=== PATIENT | male | born 1970 | race Caucasian/White ===

== ENCOUNTER 2019-12-09 12:30 | Outpatient (CLI) | payer BC ==
[~2019-12-09] VITALS: Ht 165.1 cm; Wt 77.7 kg
[2019-12-09] MEDS ORDERED: LISI1TAB29 PO (12:38)
[2019-12-09] MEDS ORDERED: ROSU40TA23 PO (12:38)
[2019-12-09] MEDS ORDERED: LORA-1025 PO (12:38)
[2019-12-09] MEDS ORDERED: ALPR0.25 PO (12:38)
== END 2019-12-09 12:50 | disposition home or self-care (01) ==
LOC: PREOP 12:30
PROVIDERS: ATTEND Surgery
DX: Z01.818 Encounter for other preprocedural examination (principal)

== ENCOUNTER 2019-12-13 12:23 | Day surgery (SDC) | payer BC ==
[~2019-12-13] VITALS: Ht 165.1 cm; Wt 77.7 kg
[~2019-12-13 12:23] MED LIST: ALPR0.25 PO; LACTATED RINGERS 1,000 ML IV ONE; LISI1TAB29 PO; LORA-1025 PO; ROSU40TA23 PO
[2019-12-13] MEDS ORDERED: LACTATED RINGERS 1,000 ML IV STA (12:29)
[2019-12-13 12:42] VITALS: BP 125/83
[2019-12-13] MEDS ORDERED: MIDAZOLAM 2 MG/2 ML (VERSED) VIAL ONE (12:44)
[2019-12-13] MEDS ORDERED: PROPOFOL INJECTION 50 ML IV ONE (12:44)
--- NOTE | 2019-12-13 12:50 | Progress Note-Pre Operative ---
Pre-Operative Progress Note H&P Reviewed The H&P was reviewed, patient examined and no changes noted. Date Seen by Provider: Dec 13, 2019 Time Seen by Provider: 12:49 Date H&P Reviewed: Dec 13, 2019 Time H&P Reviewed: 12:49 Pre-Operative Diagnosis: Screening Colonoscopy with family history of colon cancer RICHARD ALMEIDA DO Dec 13, 2019 12:50
--- NOTE | 2019-12-13 13:13 | Progress Note-Post Operative ---
Post-Operative Progess Note Surgeon (s)/Pipe Manufacture Supervisor (s) Surgeon RICHARD ALMEIDA DO Pipe Manufacture Supervisor: NA Pre-Operative Diagnosis Screening Colonoscopy with family history of colon cancer Post-Operative Diagnosis Normal Colon Procedure & Operative Findings Date of Procedure 12/13/19 Procedure Performed/Findings Colonoscopy Anesthesia Type per [facility] Estimated Blood Loss Estimated blood loss (mL): None Specimens/Packing Specimens Removed None RICHARD ALMEIDA DO Dec 13, 2019 13:13
[2019-12-13 13:15] VITALS: BP 101/60
--- NOTE | 2019-12-13 13:15 | Discharge Inst-Simple/Standard ---
Discharge Inst-Standard Patient Instructions/Follow Up Plan of Care/Instructions/FU: Patient should have colonoscopy again in 5 years Activity as Tolerated: Yes Discharge Diet: Regular Diet RICHARD ALMEIDA DO Dec 13, 2019 13:15
[2019-12-13 13:20] VITALS: BP 93/57
[2019-12-13 13:25] VITALS: BP 93/57
--- NOTE | 2019-12-13 13:32 | Anesthesia-General Post-Op ---
MAC Patient Condition Mental Status/LOC: Same as Preop Cardiovascular: Satisfactory Nausea/Vomiting: Absent Respiratory: Satisfactory Pain: Controlled Complications: Absent Post Op Complications Complications None Follow Up Care/Instructions Patient Instructions None needed. Anesthesiology Discharge Order Discharge Order Patient is doing well, no complaints, stable vital signs, no apparent adverse anesthesia problems. KELTON ANGUIANO DO Dec 13, 2019 13:32
[2019-12-13 13:51] VITALS: BP 111/89
[2019-12-13 13:52] VITALS: BP 111/89
--- NOTE | 2019-12-13 18:47 | OPERATIVE REPORT ---
DATE OF SERVICE: 12/13/2019 PREOPERATIVE DIAGNOSIS: History of colon polyps, family history of colon cancer. POSTOPERATIVE DIAGNOSIS: Normal colon. PROCEDURE: Colonoscopy. SURGEON: Richard Bradley D.O. ANESTHESIA: Per MDA. ESTIMATED BLOOD LOSS: None. COMPLICATIONS: None. INDICATIONS: The patient is a 49-year-old male with family history of colon cancer, personal history of polyps. He understands risks and benefits of procedure and wished to proceed with procedure. Consent was signed in the chart. DESCRIPTION OF PROCEDURE: The patient was taken to the endoscopy suite, placed in left lateral recumbent position. Timeout was performed. Digital rectal exam was performed. There were no palpable polyps, masses or ulcerations. Scope was inserted in the rectum, advanced all the way to the cecum with minimal difficulty. Prep was adequate. Scope was then slowly retracted back. There were no polyps, masses or ulcerations within the cecum, ascending, transverse, descending and sigmoid colon. Once in the rectum, scope was retroflexed noting no other pathology. Scope was returned to its normal position, slowly withdrawn until completely removed. The patient tolerated procedure well without any complications, taken to recovery room in stable condition. RECOMMENDATIONS: The patient will need repeat colonoscopy in 5 years. Any issues before that, be seen at that time. Job ID: [id number] DocumentID: [id number] Dictated Date: 12/13/2019 13:15:36 Health Program Analyst Date: 12/13/2019 18:47:00 Dictated By: RICHARD BRADLEY DO
--- OUTSIDE RECORDS SUMMARY | 2019-12-15 15:06 | XMS REPORT | Continuity of Care Document ---
Author Organization Unknown Address Unknown Phone Unavailable Allergies Active Description Code Type Severity Reaction Onset Reported/Identified Relationship to Patient Clinical Status Yes No Known Drug Allergies [id number] Drug Allergy Unknown N/A 12/09/2019 Medications There is no data. Problems Date Dx Coded Attending Type Code Diagnosis Diagnosed By 12/07/2019 RICHARD ALMEIDA DO Ot Z01.818 ENCOUNTER FOR OTHER PREPROCEDURAL EXAMIN 12/09/2019 RICHARD ALMEIDA DO Ot Z01.818 ENCOUNTER FOR OTHER PREPROCEDURAL EXAMIN 12/09/2019 RICHARD ALMEIDA DO Ot Z01.818 ENCOUNTER FOR OTHER PREPROCEDURAL EXAMIN 12/14/2019 RICHARD ALMEIDA DO Ot I10 ESSENTIAL (PRIMARY) HYPERTENSION 12/14/2019 RICHARD ALMEIDA DO Ot Z12. 11 ENCOUNTER FOR SCREENING FOR MALIGNANT NE 12/14/2019 RICHARD ALMEIDA DO Ot Z79.899 OTHER [facility] (CURRENT) DRUG THERAPY 12/14/2019 RICHARD ALMEIDA DO Ot Z80. 0 FAMILY HISTORY OF MALIGNANT NEOPLASM OF 12/14/2019 RICHARD ALMEIDA DO Ot Z86.010 PERSONAL HISTORY OF COLONIC POLYPS Procedures There is no data. Results Test Result Range LIPID PANEL - 10/28/19 08:29 CHOLESTEROL, TOTAL 256 mg/dL <200 HDL CHOLESTEROL 59 mg/dL >40 TRIGLYCERIDES 93 mg/dL <150 LDL-CHOLESTEROL 176 mg/dL (calc) NRG CHOL/HDLC RATIO 4.3 (calc) <5.0 NON HDL CHOLESTEROL 197 mg/dL (calc) <13 0 CMP - 10/28/19 08:29 GLUCOSE 100 mg/dL 65-99 UREA NITROGEN (BUN) 19 mg/dL 7-25 CREATININE 0.94 mg/dL 0.70-1.33 eGFR NON-AFR. [place] 94 mL/min/1.73m2 > OR = 60 eGFR 109 mL/min/1.73m2 > OR = 60 BUN/CREATININE RATIO NOT APPLICABLE (calc) 6-22 SODIUM 141 mmol/L 135-146 POTASSIUM 4.6 mmol/L 3.5-5.3 CHLORIDE 104 mmol/L 98-110 CARBON DIOXIDE 31 mmol/L 20-32 CALCIUM 9.8 mg/dL 8.6-10.3 PROTEIN, TOTAL 6.9 g/dL 6.1-8.1 ALBUMIN 4.5 g/dL 3.6-5.1 GLOBULIN 2.4 g/dL (calc) 1.9-3.7 ALBUMIN/GLOBULIN RATIO 1.9 (calc) 1.0-2. 5 BILIRUBIN, TOTAL 0.6 mg/dL 0.2-1.2 ALKALINE PHOSPHATASE 52 U/L 40-115 AST 20 U/L 10-35 ALT 26 U/L 9-46 CBC - 10/28/19 08:29 WHITE BLOOD CELL COUNT 5.5 Thousand/uL 3 .8-10.8 RED BLOOD CELL COUNT 4.96 Million/uL 4.2 0-5.80 HEMOGLOBIN 15.6 g/dL 13.2-17.1 HEMATOCRIT 45.6 % 38.5-50.0 MCV 91.9 fL 80.0-100.0 MCH 31.5 pg 27.0-33.0 MCHC 34.2 g/dL 32.0-36.0 RDW 12.6 % 11.0-15.0 PLATELET COUNT 290 Thousand/uL 140-400 MPV 10.8 fL 7.5-12.5 ABSOLUTE NEUTROPHILS 3113 cells/uL 1500- 7800 ABSOLUTE LYMPHOCYTES 1469 cells/uL 850-3 900 ABSOLUTE MONOCYTES 451 cells/uL 200-950 ABSOLUTE EOSINOPHILS 429 cells/uL 15-500 ABSOLUTE BASOPHILS 39 cells/uL 0-200 NEUTROPHILS 56.6 % NRG LYMPHOCYTES 26.7 % NRG MONOCYTES 8.2 % NRG EOSINOPHILS 7.8 % NRG BASOPHILS 0.7 % NRG Encounters ACCT No. Visit Date/Time Discharge Status Pt. Type Provider Facility Loc./Unit Complaint [id number] 10/18/2019 16:20:00 10/18/2019 23:59:5 9 CLS Outpatient TETE, HELADIO Paulino [facility] [id number] 10/28/2019 08:30:00 Document Registration [id number] 12/13/2019 12:23:00 020 13:53:00 DIS Outpatient RICHARD ALMEIDA DO Via [facility] ENDO SCREENING/FAMILY HX COL ON [place] [id number] 12/09/2019 12:30:00 020 12:50:00 DIS Outpatient RICHARD ALMEIDA DO [facility] PREOP COLONOSCOPY
== END 2019-12-13 13:53 | disposition home or self-care (01) ==
LOC: ENDO 12:23
PROVIDERS: ATTEND Surgery
DX: Z12.11 Encounter for screening for malignant neoplasm of colon (principal); Z86.010 Personal history of colon polyps; Z80.0 Family history of malignant neoplasm of digestive organs; I10 Essential (primary) hypertension; Z79.899 Other long term (current) drug therapy

== ENCOUNTER → 2021-01-25 | Outpatient (CLI) | payer BC ==
[~2021-01-25] MED LIST changes: -LACTATED RINGERS 1,000 ML IV ONE
== END ==
LOC: RAD 14:14
PROVIDERS: ATTEND Family Medicine
DX: S22.000A Wedge compression fracture of unspecified thoracic vertebra, initial encounter for closed fracture (principal); Z53.8 Procedure and treatment not carried out for other reasons

== ENCOUNTER 2021-06-02 16:40 | Emergency (ER) | payer BC ==
[~2021-06-02] VITALS: Ht 165.1 cm; Wt 69.8 kg
[2021-06-02] MEDS ORDERED: NS IV 1000 ML 1,000 ML IV SCH (16:45)
[2021-06-02] MEDS ORDERED: RT-ALBUTEROL HFA 8.5 GM INHALER IH STA (17:04)
[2021-06-02] MEDS ORDERED: ONDANSETRON 4 MG/2 ML (SDV) Z0FRAN IVP STA (17:04)
[2021-06-02] MEDS ORDERED: ONDANSETRON 4 MG/2 ML (SDV) Z0FRAN ONE (17:10)
--- NOTE | 2021-06-02 17:12 | ED General ---
General Stated Complaint: COVID+; COUGH; NAUSEA/VOMITING Source of Information: Patient History of Present Illness Date Seen by Provider: Jun 02, 2021 Time Seen by Provider: 16:42 Initial Comments 50-year-old male presenting with complaints of 1 week of cough, nausea, vomiting, diarrhea. He reports having a positive Covid test a week ago. He has been at home and his has been sick for 2 weeks. She was admitted earlier today from ER due to complications from Covid. Patient states that he has lost 15 pounds in the last week and cannot keep anything down. He states that he vomits anytime he tries to eat or drink anything. He states if he does take anything by mouth then he coughs and vomits after coughing and gagging himself. He has been running a fever at times and reports it was 101.5F earlier today and he took some DayQuil for it. He complains of diarrhea but has not had a bowel movement for 4 days until a loose stool today. He did not try to contact clinic or do anything with his pcp about his symptoms all week but after his was admitted earlier this morning he decided to come to the ED and be seen. Timing/Duration: 1 Week, Constant Severity: Severe Associated Systoms: Chest Pain (chest wall pain from coughing), Cough; No Diaphoresis; Fever/Chills, Headaches, Loss of Appetite, Malaise, Nausea/Vomiti ng; No Rash, No Seizure; Shortness of Air; No Syncope; Weakness Allergies and Home Medications Allergies Coded Allergies: No Known Drug Allergies (Unverified , 12/09/19) Home Medications Amlodipine/Valsartan 1 Each Tablet, 1 TAB PO DAILY, (Reported) Last Action: New Order Azithromycin 500 Mg Tablet, 500 MG PO DAILY Prescribed by: LESLIE MOSS on 06/02/212006 Ezetimibe 10 Mg Tablet, 10 MG PO DAILY, (Reported) Last Action: New Order Ondansetron 4 Mg Tab.rapdis, 4 MG PO Q6H PRN for NAUSEA/VOMITING Prescribed by: LESLIE MOSS on 06/02/212006 Prednisone 20 Mg Tab, 40 MG PO DAILY Prescribed by: LESLIE MOSS on 06/02/21 2007 Patient Home Medication List Home Medication List Reviewed: Yes Review of Systems Review of Systems Constitutional: see HPI EENTM: nose congestion Respiratory: see HPI Cardiovascular: No edema; palpitations Gastrointestinal: see HPI Genitourinary: decreased output Musculoskeletal: other (generalized muscle and body aches) Skin: No rash Psychiatric/Neurological: See HPI Hematologic/Lymphatic: Denies Blood Clots Immunological/Allergic: grass allergy, pollen allergy Past Cdyirnc-Ccsvbn-Hngprm Hx Seasonal Allergies Seasonal Allergies: Yes Past Medical History Surgeries: No Respiratory: No Cardiac: Yes High Cholesterol, Hypertension Neurological: No Genitourinary: No Gastrointestinal: Yes Polyps Musculoskeletal: No Endocrine: No HEENT: No Cancer: No Psychosocial: No Integumentary: No Blood Disorders: No Family Medical History Colon cancer Physical Exam Vital Signs Vital Signs - First Documented 06/02/21 16:50 Temp 37.4 Pulse 97 Resp 16 B/P (MAP) 118/74 (89) Pulse Ox 98 O2 Delivery Room Air Capillary Refill : Height, Weight, BMI Height: '" Weight: lbs. oz. kg; 28.50 BMI Method: General Appearance: No Apparent Distress, WD/WN HEENT: PERRL/EOMI, Pharynx Normal Neck: Full Range of Motion, Normal Inspection, Non Tender, Supple Respiratory: No Accessory Muscle Use, No Respiratory Distress, Decreased Breath Sounds, Other (tender to palpation on chest wall) Cardiovascular: Regular Rate, Rhythm, Normal Peripheral Pulses Gastrointestinal: Normal Bowel Sounds, No Pulsatile Mass, Soft; No Distended, No Guarding, No Rebound; Tenderness Rectal: Deferred Extremity: Normal Capillary Refill, Normal Inspection, No Calf Tenderness, No Pedal Edema Neurologic/Psychiatric: Alert, Oriented x3, No Motor/Sensory Deficits, lead relay tester II- XII Norm as Tested, Other (flat affect) Skin: Normal Color, Warm/Dry Focused Exam Lactate Level 06/02/21 17:04: Lactic Acid Level 0.98 Lactic Acid Level Laboratory Tests Test 06/02/21 17:04 Lactic Acid Level 0.98 MMOL/L (0.50-2.00) Progress/Results/Core Measures Suspected Sepsis SIRS Temperature: Pulse: Respiratory Rate: Laboratory Tests 06/02/21 17:04: White Blood Count 5.2 Blood Pressure / Mean: 06/02/21 17:04: Lactic Acid Level 0.98 Laboratory Tests 06/02/21 17:04: Creatinine 0.95, INR Comment 0.9, Platelet Count 168, Total Bilirubin 0.3 Results/Orders Lab Results Laboratory Tests Test 06/02/21 17:04 06/02/21 17:13 06/02/21 17:24 Range/Units White Blood Count 5.2 4.3-11.0 10^3/uL Red Blood Count 4.99 4.30-5.52 10^6/uL Hemoglobin 15.4 13.3-17.7 g/dL Hematocrit 45 40-54 % Mean Corpuscular Volume 90 80-99 fL Mean Corpuscular Hemoglobin 31 25-34 pg Mean Corpuscular Hemoglobin Concent 34 32-36 g/dL Red Cell Distribution Width 13.0 10.0-14.5 % Platelet Count 168 130-400 10^3/uL Mean Platelet Volume 10.4 9.0-12.2 fL Immature Granulocyte % (Auto) 0 % Neutrophils (%) (Auto) 74 42-75 % Lymphocytes (%) (Auto) 20 12-44 % Monocytes (%) (Auto) 6 0-12 % Eosinophils (%) (Auto) 0 0-10 % Basophils (%) (Auto) 0 0-10 % Neutrophils # (Auto) 3.8 1.8-7.8 X 10^3 Lymphocytes # (Auto) 1.1 1.0-4.0 X 10^3 Monocytes # (Auto) 0.3 0.0-1.0 X 10^3 Eosinophils # (Auto) 0.0 0.0-0.3 10^3/uL Basophils # (Auto) 0.0 0.0-0.1 10^3/uL Immature Granulocyte # (Auto) 0.0 0.0-0.1 10^3/uL Prothrombin Time 12.8 12.2-14.7 SEC INR Comment 0.9 0.8-1.4 Activated Partial Thromboplast Time 36 H 24-35 SEC D-Dimer 0.44 0.00-0.49 UG/ML Sodium Level 133 L 135-145 MMOL/L Potassium Level 4.4 3.6-5.0 MMOL/L Chloride Level 97 L 98-107 MMOL/L Carbon Dioxide Level 25 21-32 MMOL/L Anion Gap 11 5-14 MMOL/L Blood Urea Nitrogen 19 H 7-18 MG/DL Creatinine 0.95 0.60-1.30 MG/DL Estimat Glomerular Filtration Rate 83 BUN/Creatinine Ratio 20 Glucose Level 112 H 70-105 MG/DL Lactic Acid Level 0.98 0.50-2.00 MMOL/L Calcium Level 8.4 L 8.5-10.1 MG/DL Corrected Calcium 8.6 8.5-10.1 MG/DL Total Bilirubin 0.3 0.1-1.0 MG/DL Aspartate Amino Transf (AST/SGOT) 55 H 5-34 U/L Alanine Aminotransferase (ALT/SGPT) 46 0-55 U/L Alkaline Phosphatase 93 40-136 U/L Troponin I < 0.30 <0.30 NG/ML C-Reactive Protein 2.57 H <0.50 MG/DL Pro-B-Type Natriuretic Peptide 12.1 <75.0 PG/ML Total Protein 6.7 6.4-8.2 GM/DL Albumin 3.7 3.2-4.5 GM/DL Blood Gas Puncture Site RIGHT BRACHIAL Blood Gas Patient Temperature 37.4 Arterial Blood pH 7.48 H 7.37-7.43 Arterial Blood Partial Pressure CO2 37 35-45 MMHG Arterial Blood Partial Pressure O2 62 L 79-93 MMHG Arterial Blood HCO3 28 H 23-27 MMOL/L Arterial Blood Total CO2 28.7 21.0-31.0 MMOL/L Arterial Blood Oxygen Saturation 93 L 94-100 % Arterial Blood Base Excess 4.0 H -2.5-2.5 MMOL/L Jose Test NEGATIVE Blood Gas Ventilator Setting NO Blood Gas Inspired Oxygen N/A Urine Color YELLOW Urine Clarity CLEAR Urine pH 6.0 5-9 Urine Specific [place] >=1.030 1.016-1.022 Urine Protein 1+ H NEGATIVE Urine Glucose (UA) NEGATIVE NEGATIVE Urine Ketones 1+ H NEGATIVE Urine Nitrite NEGATIVE NEGATIVE Urine Bilirubin 1+ H NEGATIVE Urine Urobilinogen 0.2 < = 1.0 MG/DL Urine Leukocyte Esterase NEGATIVE NEGATIVE Urine RBC (Auto) NEGATIVE NEGATIVE Urine RBC NONE /HPF Urine WBC 2-5 /HPF Urine Squamous Epithelial Cells 5-10 /HPF Urine Crystals NONE /LPF Urine Bacteria MODERATE H /HPF Urine Casts PRESENT /LPF Urine Granular Casts 2-5 H /LPF Urine Mucus LARGE H /LPF Urine Culture Indicated YES My Orders Orders - LESLIE MOSS MD Monitor-Rhythm Ecg Trace Only (06/02/21 16:45) Ed Iv/Invasive Line Start (06/02/21 16:45) Cbc With Automated Diff (06/02/21 16:45) Comprehensive Metabolic Panel (06/02/21 16:45) Crp Fs (06/02/21 16:45) Troponin I Fs (06/02/21 16:45) Protime With Inr (06/02/21 16:45) Partial Thromboplastin Time (06/02/21 16:45) Ekg Tracing (06/02/21 16:45) Arterial Blood Gas (06/02/21 16:45) Ns Iv 1000 Ml (Sodium Chloride 0.9%) (06/02/21 16:45) Fibrin Degradation Products (06/02/21 16:45) Probnp Fs (06/02/21 16:45) Chest 1 View Ap/Pa Only (06/02/21 16:45) Ua Culture If Indicated (06/02/21 16:45) Dexamethasone Injection (Decadron Inje (06/02/21 16:45) Blood Culture (06/02/21 16:50) Lactic Acid Analyzer (06/02/21 16:50) Albuterol Inhaler (Albuterol) (06/02/21 17:04) Ondansetron Injection (Zofran Injectio (06/02/21 17:04) Nursing Communication (Order) (06/02/21 17:05) Ondansetron Injection (Zofran Injectio (06/02/21 17:10) Urine Culture (06/02/21 17:24) Ns Iv 1000 Ml (Sodium Chloride 0.9%) (06/02/21 17:54) Azithromycin Injection (Zithromax Inject (06/02/21 17:55) Ketorolac Injection (Toradol Injection) (06/02/21 17:55) Orthostatic Vital Signs (Adult (06/02/21 19:01) Rx-Ondansetron Po (Rx-Zofran Po) (06/02/21 20:30) Rx-Ondansetron Po (Rx-Zofran Po) (06/02/21 20:21) Medications Given in ED Current Medications Medications Dose Ordered Sig/John Route Start Time Stop Time Status Last Admin Dose Admin Ondansetron HCl 4 mg Q6H PRN PO 06/02/21 20:30 06/02/21 20:23 DC 06/02/21 20:22 4 MG Vital Signs/I&O 06/02/21 06/02/21 06/02/21 06/02/21 16:50 18:07 19:25 20:12 Temp 37.4 37.4 Pulse 97 100 96 104 104 Resp 16 16 B/P (MAP) 118/74 (89) 102/62 (75) 112/92 (98) 112/70 (84) 115/89 (98) Pulse Ox 98 98 O2 Delivery Room Air Room Air 06/03/21 00:00 Intake Total 2250 ml Balance 2250 ml Capillary Refill : Progress Note #1: Progress Note check labs, ECG, CXR, cardiac enzymes and coags. Give IVF for hydration, Zofran for nausea, Decadron for cough and inflammation of lungs, albuterol inhaler with spacer. Obtain ABG to check oxygen level in blood. Sats with probe on his forehead are 98-100% on room air. Differential diagnosis includes Covid pneumonia, pulmonary malaise, myocardial infarction, congestive heart failure, sepsis, viral syndrome Progress Note #2: Progress Note CXR with diffuse patchy infiltrates consistent with Covid. CBC without acute significant abnormality. Chemistry without sepsis and normal cardiac enzymes and lactic acid. ABG with alkalosis pH 7.48, pCO2 37, pO2 62 UA positive for bacteria and concentrated with elevated specific gravity. Negative D Dimer for PE. Repeat IVF bolus and encourage oral intake. Give Toradol to help with pain in ribs from coughing. first dose of zithromax by IV to help avoid nausea/vomiting. Pt has had no emesis in the ED Progress Note #3: Progress Note Orthostatic vital signs did not demonstrate further dehydration. Patient stated he was feeling better. Will discharge to home with inhaler, spacer, Zithromax, Zofran, prednisone, counseling on follow-up and return precautions. ECG Initial ECG Impression Date: Jun 02, 2021 Initial ECG Impression Time: 17:00 Initial ECG Rate: 96 Initial ECG Rhythm: Normal Sinus Initial ECG Comparisson: No Previous ECG Available Comment Normal sinus rhythm with a heart rate of 96 bpm. Multiple PVCs are present. IL interval 148 ms. QT interval 342 ms with a QTc interval 433 ms. There is no acute ST elevation. There is no prior tracing available for comparison. Diagnostic Imaging Diagonstic Imaging: Xray Plain Films/CT/US/NM/MRI: chest Comments NAME: OBDULIA FALLON [facility] REC#: [id number] PT STATUS: REG ER : 1970 PHYSICIAN: LESLIE MOSS MD ADMIT DATE: 06/02/21/ER FS Draft Date of Exam:06/02/21 CHEST 1 VIEW AP/PA ONLY INDICATION: Cough, Covid positive. COMPARISON: None available. TECHNIQUE: Single radiograph of the chest dated June 02, 2021. FINDINGS: The cardiac silhouette is within normal limits in size. No significant pulmonary vascular congestion. Minimal patchy opacities are seen within the lungs, bilaterally. No pleural effusion. No pneumothorax. No acute osseous abnormality. IMPRESSION: Minimal patchy bilateral pulmonary opacities concerning for infectious infiltrate such as Covid. Recommend clinical correlation. Dictated on workstation # [id number] Dict: 06/02/21 1719 Trans: 06/02/21 1721 [facility] [id number] Interpreted by: JEANNINE PEACOCK MD Electronically signed by: Reviewed: Reviewed by Me Departure Impression Primary Impression: COVID-19 virus infection Additional Impressions: Nausea vomiting and diarrhea Upper respiratory infection with cough and congestion Dehydration Disposition: HOME, SELF-CARE Condition: Stable Departure-Patient Inst. Decision time for Depature: 20:02 Referrals: HELADIO GARCIA MD (PCP/Family) Primary Care Physician Patient Instructions: COVID-19 ED, COVID-19 Overview, Cough, Adult ED, Dehydration, Adult ED, How to Use a Spacer, Nausea and Vomiting, Adult ED, Recovery After COVID-19 Add. Discharge Instructions: Use the nausea medicine to help keep your stomach settled so you can keep sipping on fluids to stay hydrated. Use the inhaler with spacer to help with cough and breathing. Continue Mucinex to help loosen cough and congestion. Use a humidifier at the bedside to help with keeping congestion and airways moist when you are sleeping. Take the full course of antibiotic and steroids to treat for atypical pneumonia and lung inflammation. Check with Dr. Garcia and the [facility] clinic during the week for continued concerns Scripts Azithromycin (Azithromycin) 500 Mg Tablet 500 MG PO DAILY for 4 Days, #4 TAB 0 Refills Prov: LESLIE MOSS MD 06/02/21 Ondansetron (Ondansetron Odt) 4 Mg Tab.rapdis 4 MG PO Q6H PRN for NAUSEA/VOMITING for 5 Days, #20 TAB 1 Refill Prov: LESLIE MOSS MD 06/02/21 Prednisone (Prednisone) 20 Mg Tab 40 MG PO DAILY for COVID/Cough for 5 Days, #10 TAB 0 Refills Prov: LESLIE MOSS MD 06/02/21 Work/School Note: Work Release Form Date Seen in the Emergency Department: Jun 02, 2021 Return to Work: Jun 11, 2021 Other Restrictions Listed Below: May return to work after Quarantine and Covid symptoms resolved LESLIE MOSS MD Jun 02, 2021 17:11
[2021-06-02 17:16] LABS: WHITE BLOOD COUNT 5.2 10^3/uL (4.3-11.0)
[2021-06-02 17:17] LABS: BASOPHILS % (AUTO) 0 % (0-10); EOSINOPHILS % (AUTO) 0 % (0-10); HEMATOCRIT 45 % (40-54); HEMOGLOBIN 15.4 g/dL (13.3-17.7); LYMPHOCYTES # (AUTO) 1.1 X 10^3 (1.0-4.0); LYMPHOCYTES % (AUTO) 20 % (12-44); MEAN CORPUSCULAR HEMOGLOBIN 31 pg (25-34); MEAN CORPUSCULAR HGB CONC 34 g/dL (32-36); MEAN CORPUSCULAR VOLUME 90 fL (80-99); MEAN PLATELET VOLUME 10.4 fL (9.0-12.2); MONOCYTES # (AUTO) 0.3 X 10^3 (0.0-1.0); MONOCYTES % (AUTO) 6 % (0-12); NEUTROPHILS # (AUTO) 3.8 X 10^3 (1.8-7.8); NEUTROPHILS % (AUTO) 74 % (42-75); PLATELET COUNT 168 10^3/uL (130-400)
[2021-06-02 17:17] LABS: ABG PCO2 37 MMHG (35-45); ABG PH 7.48 (7.37-7.43); ABG PO2 62 MMHG (79-93)
[2021-06-02 17:18] LABS: ABG OXYGEN SATURATION 93 % (94-100); ABG TCO2 28.7 MMOL/L (21.0-31.0); ALLENS TEST NEGATIVE; VENTILATOR NO
[2021-06-02 17:20] LABS: PATIENT TEMP 37.4
--- NOTE | 2021-06-02 17:22 | Diagnostic Imaging Report ---
INDICATION: Cough, Covid positive. COMPARISON: None available. TECHNIQUE: Single radiograph of the chest dated June 02, 2021. FINDINGS: The cardiac silhouette is within normal limits in size. No significant pulmonary vascular congestion. Minimal patchy opacities are seen within the lungs, bilaterally. No pleural effusion. No pneumothorax. No acute osseous abnormality. IMPRESSION: Minimal patchy bilateral pulmonary opacities concerning for infectious infiltrate such as Covid. Recommend clinical correlation. Dictated by: Dictated on workstation # [id number]
[2021-06-02 17:26] LABS: INR 0.9 (0.8-1.4); PROTHROMBIN TIME PATIENT 12.8 SEC (12.2-14.7)
[2021-06-02 17:33] LABS: ALANINE AMINOTRANSFERASE 46 U/L (0-55); ALKALINE PHOSPHATASE 93 U/L (40-136); BILIRUBIN,TOTAL 0.3 MG/DL (0.1-1.0); BUN/CREATININE RATIO 20; CALCIUM 8.4 MG/DL (8.5-10.1); CARBON DIOXIDE 25 MMOL/L (21-32); CHLORIDE 97 MMOL/L (98-107); CREATININE SERUM 0.95 MG/DL (0.60-1.30); GFR ESTIMATED 83; GLUCOSE 112 MG/DL (70-105); POTASSIUM 4.4 MMOL/L (3.6-5.0); SODIUM 133 MMOL/L (135-145)
[2021-06-02 17:34] LABS: ALBUMIN 3.7 GM/DL (3.2-4.5); TOTAL PROTEIN 6.7 GM/DL (6.4-8.2)
[2021-06-02 17:34] LABS: BILIRUBIN,URINE 1+ (NEGATIVE); CLARITY,URINE CLEAR; COLOR,URINE YELLOW; GLUCOSE, URINE (UA) NEGATIVE (NEGATIVE); KETONES,URINE 1+ (NEGATIVE); LEUKOCYTE ESTERASE ,URINE NEGATIVE (NEGATIVE); NITRITE,URINE NEGATIVE (NEGATIVE); PROTEIN,URINE 1+ (NEGATIVE)
[2021-06-02 17:35] LABS: BACTERIA,URINE MODERATE /HPF
[2021-06-02] MEDS ORDERED: EZET10TA49 PO (17:35)
[2021-06-02] MEDS ORDERED: AMLO-375 PO (17:35)
[2021-06-02] MEDS ORDERED: NS IV 1000 ML 1,000 ML IV STA (17:54)
[2021-06-02] MEDS ORDERED: KETOROLAC 30 MG/ML VIAL IVP STA (17:55)
[2021-06-02] MEDS ORDERED: AZITHROMYCIN INJECTION 500 MG in NS (IVPB) 250 ML IV STA (17:55)
[2021-06-02 19:25] VITALS: BP_SYST 102; BP_SYST 112; BP_SYST 115; BP_DIAS 62; BP_DIAS 70; BP_DIAS 89
[2021-06-02] MEDS ORDERED: PRD20T PO (20:07)
[2021-06-02] MEDS ORDERED: AZIT500T9 PO (20:07)
[2021-06-02] MEDS ORDERED: ONDA4TAB11 PO (20:07)
[2021-06-02 20:12] VITALS: BP 112/92
[2021-06-02] MEDS ORDERED: RX-ONDANSETRON 4 MG ODT (ZOFRAN) PPK #4 ONE (20:21)
[2021-06-02] MEDS ORDERED: RX-ONDANSETRON 4 MG ODT (ZOFRAN) PPK #4 PO PRN (20:30)
== END 2021-06-02 20:23 | disposition home or self-care (01) ==
LOC: EDUNIT# 16:40 → ER FS 16:43
DX: U07.1 COVID-19 (principal); R11.2 Nausea with vomiting, unspecified; E86.0 Dehydration; I10 Essential (primary) hypertension
CPT/HCPCS: 36415; 71045; 80053; 81000; 82805; 83605; 83880; 84484; 85025; 85379; 85610; 85730; 86141; 87040; 87088; 93005; 93041; 96374; 96375

== ENCOUNTER 2021-06-06 03:32 | Inpatient (IN) | payer BC ==
[~2021-06-06] VITALS: Ht 165.1 cm; Wt 69.9 kg
[~2021-06-06 03:32] MED LIST changes: +AMLO-375 PO; +AZIT500T9 PO; +EZET10TA49 PO; +ONDA4TAB11 PO; +PRD20T PO
--- NOTE | 2021-06-06 04:14 | ED Cough/URI ---
General Chief Complaint: Respiratory Problems Stated Complaint: LOW O2; COVID+ Nursing Triage Note: PT AMBULATE TO ROOM FS05 WITH C/O LOW O2 LEVELS AT HOME. PT REPORTS O2 LEVELS OF 83-88% AT HOME. PT O2 78% RA UPON ARRIVAL. Source: patient Exam Limitations: no limitations History of Present Illness Date Seen by Provider: Jun 06, 2021 Time Seen by Provider: 04:00 Initial Comments 50-year-old male presents with shortness of air and low oxygen levels (monitoring with home oxygen since her device). He states he was in the 80s. Patient diagnosed with Covid about 10 days ago has been using an inhaler at home and some cough medicine. Seen in this ER 06/02 and started on Azithro and prednisone (Enyart) and sent home. Overall feeling worse. Allergies and Home Medications Allergies Coded Allergies: No Known Drug Allergies (Unverified , 12/09/19) Home Medications Amlodipine/Valsartan 1 Each Tablet, 1 TAB PO DAILY, (Reported) Last Action: Reviewed Azithromycin 500 Mg Tablet, 500 MG PO DAILY, (Reported) FILLED 06-03-2021 #4/4 DAY SUPPLY Last Action: Reviewed Ezetimibe 10 Mg Tablet, 10 MG PO DAILY, (Reported) Last Action: Reviewed Ibuprofen 200 Mg Capsule, 400-600 MG PO Q8H PRN for PAIN-MILD (1-4), (Reported) Last Action: Reviewed Ondansetron 4 Mg Tab.rapdis, 4 MG PO Q6H PRN for NAUSEA/VOMITING-1ST LINE, (Reported) Last Action: Reviewed Prednisone 20 Mg Tab, 20 MG PO BID, (Reported) FILLED 06-03-2021 #10/5 DAY SUPPLY Last Action: Reviewed Patient Home Medication List Home Medication List Reviewed: Yes Review of Systems Review of Systems Constitutional: No chills, No fever; malaise EENTM: nose congestion; No throat pain, No throat swelling Respiratory: cough, short of breath; No stridor, No wheezing Cardiovascular: No chest pain, No edema, No palpitations Gastrointestinal: No abdominal pain, No nausea, No vomiting Genitourinary: No dysuria, No frequency Musculoskeletal: No back pain, No joint pain Skin: No change in color, No rash Psychiatric/Neurological: Denies Numbness, Denies Paresthesia, Denies Weakness Past Hbeenui-Qgmznd-Rynmqh Hx Patient Social History Tobacco Use?: No Smoking Status: Former Smoker Substance use?: No Alcohol Use?: No Seasonal Allergies Seasonal Allergies: Yes Past Medical History Surgery/Hospitalization HX: HTN, Hyperlipidemia Surgeries: No Respiratory: No Cardiac: Yes High Cholesterol, Hypertension Neurological: No Genitourinary: No Gastrointestinal: Yes Polyps Musculoskeletal: No Endocrine: No HEENT: No Cancer: No Psychosocial: No Integumentary: No Blood Disorders: No Family Medical History Colon cancer Physical Exam Vital Signs - First Documented 06/06/21 03:44 Temp 36.3 Pulse 75 Resp 17 B/P (MAP) 113/89 (97) Pulse Ox 90 O2 Delivery Nasal Cannula O2 Flow Rate 2.00 Capillary Refill : Less Than 3 Seconds Height: '" Weight: lbs. oz. kg; 25.00 BMI Method: General Appearance: WD/WN, no apparent distress HEENT: PERRL/EOMI, normal ENT inspection Neck: non-tender, supple Respiratory: chest non-tender, lungs clear, normal breath sounds, no respiratory distress, no accessory muscle use Cardiovascular: regular rate, rhythm, no edema, no JVD Gastrointestinal: non tender, soft Extremities: normal range of motion, non-tender Neurologic/Psychiatric: no motor/sensory deficits, alert, normal mood/affect Skin: normal color, warm/dry Progress/Results/Core Measures Suspected Sepsis SIRS Temperature: Pulse: 75 Respiratory Rate: 17 Laboratory Tests 06/06/21 03:50: White Blood Count 5.8 Blood Pressure 113 /89 Mean: 97 Laboratory Tests 06/06/21 03:50: Creatinine 0.77, Platelet Count 285, Total Bilirubin 0.4 Results/Orders Lab Results Laboratory Tests Test 06/06/21 03:50 Range/Units White Blood Count 5.8 4.3-11.0 10^3/uL Red Blood Count 4.85 4.30-5.52 10^6/uL Hemoglobin 14.7 13.3-17.7 g/dL Hematocrit 45 40-54 % Mean Corpuscular Volume 93 80-99 fL Mean Corpuscular Hemoglobin 30 25-34 pg Mean Corpuscular Hemoglobin Concent 33 32-36 g/dL Red Cell Distribution Width 13.4 10.0-14.5 % Platelet Count 285 130-400 10^3/uL Mean Platelet Volume 10.3 9.0-12.2 fL Immature Granulocyte % (Auto) 1 % Neutrophils (%) (Auto) 70 42-75 % Lymphocytes (%) (Auto) 22 12-44 % Monocytes (%) (Auto) 8 0-12 % Eosinophils (%) (Auto) 0 0-10 % Basophils (%) (Auto) 0 0-10 % Neutrophils # (Auto) 4.0 1.8-7.8 X 10^3 Lymphocytes # (Auto) 1.3 1.0-4.0 X 10^3 Monocytes # (Auto) 0.4 0.0-1.0 X 10^3 Eosinophils # (Auto) 0.0 0.0-0.3 10^3/uL Basophils # (Auto) 0.0 0.0-0.1 10^3/uL Immature Granulocyte # (Auto) 0.0 0.0-0.1 10^3/uL D-Dimer 0.38 0.00-0.49 UG/ML Sodium Level 141 135-145 MMOL/L Potassium Level 3.6 3.6-5.0 MMOL/L Chloride Level 104 98-107 MMOL/L Carbon Dioxide Level 28 21-32 MMOL/L Anion Gap 9 5-14 MMOL/L Blood Urea Nitrogen 13 7-18 MG/DL Creatinine 0.77 0.60-1.30 MG/DL Estimat Glomerular Filtration Rate 106 BUN/Creatinine Ratio 17 Glucose Level 113 H 70-105 MG/DL Calcium Level 8.5 8.5-10.1 MG/DL Corrected Calcium 8.7 8.5-10.1 MG/DL Total Bilirubin 0.4 0.1-1.0 MG/DL Aspartate Amino Transf (AST/SGOT) 37 H 5-34 U/L Alanine Aminotransferase (ALT/SGPT) 46 0-55 U/L Alkaline Phosphatase 95 40-136 U/L C-Reactive Protein 1.78 H <0.50 MG/DL Total Protein 6.6 6.4-8.2 GM/DL Albumin 3.7 3.2-4.5 GM/DL Procalcitonin 0.10 H <0.10 NG/ML My Orders Orders - ROVENSTINELORETTA DO Ed Iv/Invasive Line Start (06/06/21 04:04) Cbc With Automated Diff (06/06/21 04:04) Comprehensive Metabolic Panel (06/06/21 04:04) Procalcitonin (Pct) (06/06/21 04:04) Fibrin Degradation Products (06/06/21 04:04) Crp Fs (06/06/21 04:04) Chest 1 View Ap/Pa Only (06/06/21 04:04) Ed Iv/Invasive Line Start (06/06/21 04:05) Dexamethasone Injection (Decadron Inje (06/06/21 04:15) Medications Given in ED Vital Signs/I&O 06/06/21 06/06/21 06/06/21 03:44 03:48 05:26 Temp 36.3 Pulse 75 92 Resp 17 16 B/P (MAP) 113/89 (97) 117/85 Pulse Ox 90 94 O2 Delivery Nasal Cannula Nasal Cannula Nasal Cannula O2 Flow Rate 2.00 2.00 3.00 Capillary Refill : Less Than 3 Seconds Blood Pressure Mean: 97 Progress Note : Progress Note Interval change, worsening from ER visit 06/02......walked into ER today w Oxygen sats 79% on RA. CXR w progression of patchy infiltrates b/l. Normal DD, CRP actually improved from 2.5 to 1.7 in same interval. Pt + C-19 approx 05/26. was sick first and hospitalized the day he was Dx Diagnostic Imaging Diagonstic Imaging: Xray Plain Films/CT/US/NM/MRI: chest Comments progression of patchy infiltrates compared to CXR 06/02.....worse Reviewed: Reviewed by Me Departure Communication (Admissions) Time/Spoke to Admitting Phy: 05:[address] Eli who accepts for admission Impression Primary Impression: Hypoxia Additional Impression: Pneumonia due to COVID-19 virus Disposition: 30 STILL A PATIENT Condition: Improved Admissions Decision to Admit Reason: Admit from ER (General) Decision to Admit/Date: Jun 06, 2021 Time/Decision to Admit Time: 04:00 Departure-Patient Inst. Referrals: SELF,HELADIO KELLER (PCP/Family) Primary Care Physician LORETTA NATION DO Jun 06, 2021 04:14
[2021-06-06 04:21] LABS: EOSINOPHILS % (AUTO) 0 % (0-10); HEMATOCRIT 45 % (40-54); HEMOGLOBIN 14.7 g/dL (13.3-17.7); LYMPHOCYTES % (AUTO) 22 % (12-44); MEAN CORPUSCULAR HEMOGLOBIN 30 pg (25-34); MEAN CORPUSCULAR HGB CONC 33 g/dL (32-36); MEAN CORPUSCULAR VOLUME 93 fL (80-99); MEAN PLATELET VOLUME 10.3 fL (9.0-12.2); MONOCYTES % (AUTO) 8 % (0-12); NEUTROPHILS % (AUTO) 70 % (42-75); PLATELET COUNT 285 10^3/uL (130-400); WHITE BLOOD COUNT 5.8 10^3/uL (4.3-11.0)
[2021-06-06 04:22] LABS: BASOPHILS % (AUTO) 0 % (0-10); LYMPHOCYTES # (AUTO) 1.3 X 10^3 (1.0-4.0); MONOCYTES # (AUTO) 0.4 X 10^3 (0.0-1.0)
[2021-06-06 04:39] LABS: POTASSIUM 3.6 MMOL/L (3.6-5.0)
[2021-06-06 04:40] LABS: ALBUMIN 3.7 GM/DL (3.2-4.5); BILIRUBIN,TOTAL 0.4 MG/DL (0.1-1.0); CALCIUM 8.5 MG/DL (8.5-10.1); CREATININE SERUM 0.77 MG/DL (0.60-1.30); TOTAL PROTEIN 6.6 GM/DL (6.4-8.2)
[2021-06-06] MEDS ORDERED: CATHETER FLUSH 10 ML SYR IV PRN (06:45)
[2021-06-06 06:56] LABS: BASOPHILS % (AUTO) 0 % (0-10); EOSINOPHILS % (AUTO) 0 % (0-10); HEMATOCRIT 44 % (40-54); HEMOGLOBIN 14.5 g/dL (13.3-17.7); LYMPHOCYTES # (AUTO) 0.7 10^3/uL (1.0-4.0); LYMPHOCYTES % (AUTO) 8 % (12-44); MEAN CORPUSCULAR HEMOGLOBIN 31 pg (25-34); MEAN CORPUSCULAR HGB CONC 33 g/dL (32-36); MEAN CORPUSCULAR VOLUME 94 fL (80-99); MEAN PLATELET VOLUME 10.1 fL (9.0-12.2); MONOCYTES # (AUTO) 0.4 10^3/uL (0.0-1.0); MONOCYTES % (AUTO) 4 % (0-12); NEUTROPHILS # (AUTO) 8.4 10^3/uL (1.8-7.8); NEUTROPHILS % (AUTO) 88 % (42-75); PLATELET COUNT 252 10^3/uL (130-400); WHITE BLOOD COUNT 9.6 10^3/uL (4.3-11.0)
[2021-06-06 07:02] LABS: POTASSIUM 4.1 MMOL/L (3.6-5.0)
[2021-06-06 07:04] LABS: CALCIUM 8.7 MG/DL (8.5-10.1)
[2021-06-06 07:08] LABS: CREATININE SERUM 0.71 MG/DL (0.60-1.30)
--- NOTE | 2021-06-06 07:12 | Diagnostic Imaging Report ---
INDICATION: Hypoxemia Portable chest 3:59 AM There is some patchy alveolar nodular infiltrates in both lungs. These appear slightly worse compared to 06/02/2021. There are no effusions or pneumothoraces. IMPRESSION: Patchy alveolar nodular infiltrates present in both lungs suspicious for Covid pneumonia. Dictated by: Dictated on workstation # [id number]
[2021-06-06 07:45] LABS: BAND NEUTROPHILS 0 %; BASOPHILS % (MANUAL) 0 %; EOSINOPHILS % (MANUAL) 0 %; LYMPHOCYTES % (MANUAL) 6 %; MONOCYTES % (MANUAL) 3 %; NEUTROPHILS % (MANUAL) 91 %; RBC MORPH NORMAL
[2021-06-06 08:00] VITALS: BP 123/80
[2021-06-06] MEDS ORDERED: ONDA4TAB11 PO (10:31)
[2021-06-06] MEDS ORDERED: IBUP-2185 PO (10:31)
[2021-06-06] MEDS ORDERED: PRD20T PO (10:31)
[2021-06-06] MEDS ORDERED: AZIT500T9 PO (10:31)
[2021-06-06 12:00] VITALS: BP 109/75
[2021-06-06] MEDS: CATHETER FLUSH 10 ML SYR IV SCH ×2 (15:00→22:08)
[2021-06-06] MEDS: RT-ALBUTEROL HFA 8.5 GM INHALER IH SCH ×2 (15:23→20:34)
[2021-06-06 17:00] VITALS: BP 120/78
[2021-06-06] MEDS ORDERED: DOCUSATE SODIUM 100 MG (COLACE) CAP PO PRN (17:45)
[2021-06-06] MEDS ORDERED: polyethylene glycoL POWDER 17 GM (MIRALAX) PACK PO PRN (17:45)
[2021-06-06] MEDS ORDERED: polyethylene glycoL POWDER 17 GM (MIRALAX) PACK ONE (17:59)
[2021-06-06] MEDS ORDERED: DOCUSATE SODIUM 100 MG (COLACE) CAP PO ONE (17:59)
[2021-06-06 19:37] VITALS: BP 115/74
--- NOTE | 2021-06-06 23:44 | History & Physical ---
HPI History of Present Illness: 50 yo M that presented to ER because he had been monitoring his oxygen at home and it was in the high 70s and low 80s prior to arrival. States that his and son both have had Covid. He was tested 10 days ago and had symptoms 2-3 days prior to testing. He is unvaccinated at this time. h/o HTN otherwise no other medical concerns. No home oxygen requirement prior to this. Source: patient Exam Limitations: no limitations Date seen by provider: Jun 06, 2021 Time Seen by Provider: 10:45 Attending Physician Avril Eli MD PCP Self,Dimas KELLER Consult Date of Admission Jun 06, 2021 at 06:15 Home Medications Home Medications Reviewed patient Home Medication Reconciliation performed by pharmacy medication reconciliations accredited pharmacy technician and/or nursing. Patients Allergies have been reviewed. Allergies Coded Allergies: No Known Drug Allergies (Unverified , 12/09/19) XRM-[id number]-Gpcuav Hx Patient Social History Living Status: Live independently at home with and kids Smoking Status: Never a Smoker Recent Hopitalizations: No Alcohol Use?: Yes Have you traveled recently?: No Past Medical History HTN Family Medical History Family History: Colon cancer Review of Systems ([facility]) Constitutional: fever, malaise EENTM: nose congestion Respiratory: cough, dyspnea on exertion, short of breath Cardiovascular: no symptoms reported Gastrointestinal: no symptoms reported Genitourinary: no symptoms reported Musculoskeletal: no symptoms reported Skin: no symptoms reported Psychiatric/Neurological: No Symptoms Reported Reviewed Test Results Reviewed Test Results Lab Laboratory Tests Test 06/06/21 03:50 06/06/21 06:45 Range/Units White Blood Count 5.8 9.6 4.3-11.0 10^3/uL Red Blood Count 4.85 4.64 4.30-5.52 10^6/uL Hemoglobin 14.7 14.5 13.3-17.7 g/dL Hematocrit 45 44 40-54 % Mean Corpuscular Volume 93 94 80-99 fL Mean Corpuscular Hemoglobin 30 31 25-34 pg Mean Corpuscular Hemoglobin Concent 33 33 32-36 g/dL Red Cell Distribution Width 13.4 13.3 10.0-14.5 % Platelet Count 285 252 130-400 10^3/uL Mean Platelet Volume 10.3 10.1 9.0-12.2 fL Immature Granulocyte % (Auto) 1 0 % Neutrophils (%) (Auto) 70 88 H 42-75 % Lymphocytes (%) (Auto) 22 8 L 12-44 % Monocytes (%) (Auto) 8 4 0-12 % Eosinophils (%) (Auto) 0 0 0-10 % Basophils (%) (Auto) 0 0 0-10 % Neutrophils # (Auto) 4.0 8.4 H 1.8-7.8 10^3/uL Lymphocytes # (Auto) 1.3 0.7 L 1.0-4.0 10^3/uL Monocytes # (Auto) 0.4 0.4 0.0-1.0 10^3/uL Eosinophils # (Auto) 0.0 0.0 0.0-0.3 10^3/uL Basophils # (Auto) 0.0 0.0 0.0-0.1 10^3/uL Immature Granulocyte # (Auto) 0.0 0.0 0.0-0.1 10^3/uL D-Dimer 0.38 0.00-0.49 UG/ML Sodium Level 141 139 135-145 MMOL/L Potassium Level 3.6 4.1 3.6-5.0 MMOL/L Chloride Level 104 105 98-107 MMOL/L Carbon Dioxide Level 28 23 21-32 MMOL/L Anion Gap 9 11 5-14 MMOL/L Blood Urea Nitrogen 13 13 7-18 MG/DL Creatinine 0.77 0.71 0.60-1.30 MG/DL Estimat Glomerular Filtration Rate 106 117 BUN/Creatinine Ratio 17 18 Glucose Level 113 H 105 70-105 MG/DL Calcium Level 8.5 8.7 8.5-10.1 MG/DL Corrected Calcium 8.7 8.5-10.1 MG/DL Total Bilirubin 0.4 0.1-1.0 MG/DL Aspartate Amino Transf (AST/SGOT) 37 H 5-34 U/L Alanine Aminotransferase (ALT/SGPT) 46 0-55 U/L Alkaline Phosphatase 95 40-136 U/L C-Reactive Protein 1.78 H <0.50 MG/DL Total Protein 6.6 6.4-8.2 GM/DL Albumin 3.7 3.2-4.5 GM/DL Procalcitonin 0.10 H <0.10 NG/ML Neutrophils % (Manual) 91 % Lymphocytes % (Manual) 6 % Monocytes % (Manual) 3 % Eosinophils % (Manual) 0 % Basophils % (Manual) 0 % Band Neutrophils 0 % Blood Morphology Comment NORMAL Physical Exam-([facility]) Physical Exam Vital Signs VS - Last 72 Hours, by Label 06/06/21 06/06/21 06/06/21 06/06/21 03:44 03:48 05:26 08:00 Temp 36.3 36.6 Pulse 75 92 78 Resp 17 16 20 B/P (MAP) 113/89 (97) 117/85 123/80 (94) Pulse Ox 90 94 92 O2 Delivery Nasal Cannula Nasal Cannula Nasal Cannula Nasal Cannula O2 Flow Rate 2.00 2.00 3.00 4.00 06/06/21 06/06/21 06/06/21 06/06/21 09:00 12:00 12:24 15:24 Temp 35.8 Pulse 81 74 Resp 20 B/P (MAP) 109/75 (86) Pulse Ox 92 93 92 O2 Delivery Nasal Cannula Nasal Cannula Nasal Cannula O2 Flow Rate 4.00 4.00 3.00 06/06/21 06/06/21 06/06/21 06/06/21 17:00 19:37 20:00 20:34 Temp 36.4 36.7 Pulse 71 78 Resp 18 18 B/P (MAP) 120/78 (92) 115/74 (88) Pulse Ox 91 93 92 O2 Delivery Nasal Cannula Nasal Cannula Nasal Cannula Nasal Cannula O2 Flow Rate 4.00 4.00 4.00 4.00 06/06/21 23:55 Temp 36.8 Pulse 69 Resp 20 B/P (MAP) 117/72 (87) Pulse Ox 94 O2 Delivery Nasal Cannula O2 Flow Rate 4.00 Capillary Refill : Less Than 3 Seconds General Appearance: WD/WN, mild distress (with moderate activity) Neck: non-tender, full range of motion Respiratory: chest non-tender, no accessory muscle use, crackles Cardiovascular: normal peripheral pulses, regular rate, rhythm, no edema, no murmur Gastrointestinal: normal bowel sounds, non tender, soft Back: no CVA tenderness, no vertebral tenderness Extremities: non-tender, no pedal edema, no calf tenderness, normal capillary refill Neurologic/Psychiatric: no motor/sensory deficits, alert, normal mood/affect, o riented x 3 Skin: normal color, warm/dry Lymphatic: no adenopathy Assessment/Plan Assessment/Plan Admission Status: Inpatient Order (span 2 midnights) Reason for Inpatient Admission: Requires continuous monitor, moderate risk for decompensation (1) Acute respiratory failure with hypoxia Status: Acute Assessment & Plan: - Requiring 4-5 L NC, Will titrate as tolerated, Continue dexamethason, out of the recommended treatment prior for Remdisivir, Lovenox (2) Pneumonia due to COVID-19 virus Status: Acute (3) HTN (hypertension) Status: Chronic Assessment & Plan: - Holding home meds due to normotension Qualifiers: Qualified Codes: I10 - Essential (primary) hypertension AVRIL ELI MD Jun 06, 2021 23:44
[2021-06-06 23:55] VITALS: BP 117/72
[2021-06-07] MEDS: RT-ALBUTEROL HFA 8.5 GM INHALER IH SCH ×4 (03:32→22:20)
[2021-06-07 03:43] VITALS: BP 108/70
[2021-06-07] MEDS: CATHETER FLUSH 10 ML SYR IV SCH ×3 (05:07→22:44)
[2021-06-07 08:00] VITALS: BP 119/66
[2021-06-07 12:00] VITALS: BP 110/76
--- NOTE | 2021-06-07 15:17 | Progress Note ---
Objective Exam Last Set of Vital Signs Vital Signs Date Time Temp Pulse Resp B/P (MAP) Pulse Ox O2 Delivery O2 Flow Rate FiO2 06/07/21 14:48 94 Nasal Cannula 4.00 06/07/21 12:00 35.6 76 18 110/76 (87) Capillary Refill : Less Than 3 Seconds I&O Intake and Output 06/07/21 00:00 Intake Total 1410 ml Balance 1410 ml Intake Oral 1410 ml # Voids 8 Daily Weight Change Yes, 14-23 lbs Assessment/Plan Assessment/Plan (1) Acute respiratory failure with hypoxia Status: Acute Assessment & Plan: - Requiring 4-5 L NC, Will titrate as tolerated, Continue dexamethason, out of the recommended treatment prior for Remdisivir, Lovenox (2) Pneumonia due to COVID-19 virus Status: Acute (3) HTN (hypertension) Status: Chronic Assessment & Plan: - Holding home meds due to normotension Qualifiers: Qualified Codes: I10 - Essential (primary) hypertension AVRIL DIXON MD Jun 07, 2021 15:17
[2021-06-07 16:02] VITALS: BP 110/70
[2021-06-07 19:19] VITALS: BP 112/70
[2021-06-07 23:21] VITALS: BP 99/55
[2021-06-08] MEDS: RT-ALBUTEROL HFA 8.5 GM INHALER IH SCH ×4 (04:05→21:12)
[2021-06-08 04:08] VITALS: BP 115/76
[2021-06-08 06:01] LABS: BASOPHILS % (AUTO) 0 % (0-10); EOSINOPHILS % (AUTO) 0 % (0-10); HEMATOCRIT 45 % (40-54); HEMOGLOBIN 14.9 g/dL (13.3-17.7); LYMPHOCYTES # (AUTO) 1.4 10^3/uL (1.0-4.0); LYMPHOCYTES % (AUTO) 16 % (12-44); MEAN CORPUSCULAR HEMOGLOBIN 32 pg (25-34); MEAN CORPUSCULAR HGB CONC 33 g/dL (32-36); MEAN CORPUSCULAR VOLUME 95 fL (80-99); MEAN PLATELET VOLUME 9.9 fL (9.0-12.2); MONOCYTES # (AUTO) 0.8 10^3/uL (0.0-1.0); MONOCYTES % (AUTO) 10 % (0-12); NEUTROPHILS # (AUTO) 6.3 10^3/uL (1.8-7.8); NEUTROPHILS % (AUTO) 73 % (42-75); PLATELET COUNT 346 10^3/uL (130-400); WHITE BLOOD COUNT 8.6 10^3/uL (4.3-11.0)
[2021-06-08 06:16] LABS: ALBUMIN 3.4 GM/DL (3.2-4.5); POTASSIUM 4.2 MMOL/L (3.6-5.0)
[2021-06-08 06:18] LABS: TOTAL PROTEIN 6.4 GM/DL (6.4-8.2)
[2021-06-08 06:20] LABS: BILIRUBIN,TOTAL 0.4 MG/DL (0.1-1.0)
[2021-06-08 06:22] LABS: CREATININE SERUM 0.68 MG/DL (0.60-1.30)
[2021-06-08] MEDS: CATHETER FLUSH 10 ML SYR IV SCH ×3 (06:43→22:04)
--- NOTE | 2021-06-08 07:41 | Progress Note - Hospitalist ---
Subjective HPI/CC On Admission Date Seen by Provider: Jun 08, 2021 Time Seen by Provider: 11:00 Subjective/Events-last exam Patient feeling pretty good Remains on 3 L of oxygen Getting close for discharge We will check labs and chest x-ray tomorrow and do home oxygen study Review of Systems General: Fatigue Pulmonary: Dyspnea, Cough Objective Exam Vital Signs Vital Signs Date Time Temp Pulse Resp B/P (MAP) Pulse Ox O2 Delivery O2 Flow Rate FiO2 06/09/21 04:04 36.2 73 18 105/68 (80) 94 High Flow N/C 1.00 Capillary Refill : Less Than 3 Seconds General Appearance: No Apparent Distress, WD/WN, Chronically ill Respiratory: Lungs Clear, Normal Breath Sounds Cardiovascular: Regular Rate, Rhythm Neurologic/Psychiatric: Alert, Oriented x3 Results/Procedures Lab Patient resulted labs reviewed. Assessment/Plan Assessment and Plan Assess & Plan/Chief Complaint Assessment: COVID-19 pneumonia Hypoxic respiratory failure Plan: Treat insomnia Discharge plan ZAN MORGAN DO Jun 08, 2021 07:41
[2021-06-08 08:00] VITALS: BP 119/81
[2021-06-08 12:00] VITALS: BP 110/74
[2021-06-08] MEDS ORDERED: CALCIUM CARBONATE 500 MG (TUMS) TAB.CHEW PO PRN (12:15)
[2021-06-08] MEDS ORDERED: ACETAMINOPHEN 325 MG TABLET PO PRN (12:15)
[2021-06-08] MEDS ORDERED: MELATONIN 3 MG TABLET PO PRN (12:15)
[2021-06-08] MEDS ORDERED: HYDROcodone/APAP 5 MG/325 MG (LORTAB) TAB PO PRN (12:15)
[2021-06-08 16:00] VITALS: BP 113/72
[2021-06-08 19:09] VITALS: BP 117/72
[2021-06-08] MEDS ORDERED: MIRTAZAPINE 15 MG (REMERON) TAB PO SCH (21:00)
[2021-06-09 00:14] VITALS: BP 113/78
[2021-06-09] MEDS: RT-ALBUTEROL HFA 8.5 GM INHALER IH SCH ×2 (03:09→10:22)
[2021-06-09 04:04] VITALS: BP 105/68
[2021-06-09] MEDS: CATHETER FLUSH 10 ML SYR IV SCH (05:53)
[2021-06-09 07:10] LABS: BASOPHILS % (AUTO) 0 % (0-10); EOSINOPHILS # (AUTO) 0.1 10^3/uL (0.0-0.3); EOSINOPHILS % (AUTO) 1 % (0-10); HEMATOCRIT 46 % (40-54); HEMOGLOBIN 14.8 g/dL (13.3-17.7); LYMPHOCYTES # (AUTO) 1.4 10^3/uL (1.0-4.0); LYMPHOCYTES % (AUTO) 14 % (12-44); MEAN CORPUSCULAR HEMOGLOBIN 31 pg (25-34); MEAN CORPUSCULAR HGB CONC 32 g/dL (32-36); MEAN CORPUSCULAR VOLUME 96 fL (80-99); MEAN PLATELET VOLUME 9.3 fL (9.0-12.2); MONOCYTES # (AUTO) 0.9 10^3/uL (0.0-1.0); MONOCYTES % (AUTO) 9 % (0-12); NEUTROPHILS # (AUTO) 7.5 10^3/uL (1.8-7.8); NEUTROPHILS % (AUTO) 76 % (42-75); PLATELET COUNT 341 10^3/uL (130-400); WHITE BLOOD COUNT 9.9 10^3/uL (4.3-11.0)
[2021-06-09 07:19] LABS: ALBUMIN 3.3 GM/DL (3.2-4.5)
[2021-06-09 07:22] LABS: TOTAL PROTEIN 6.3 GM/DL (6.4-8.2)
[2021-06-09 07:24] LABS: BILIRUBIN,TOTAL 0.5 MG/DL (0.1-1.0)
[2021-06-09 07:26] LABS: CREATININE SERUM 0.74 MG/DL (0.60-1.30)
[2021-06-09 08:00] VITALS: BP 107/78
--- NOTE | 2021-06-09 08:12 | Diagnostic Imaging Report ---
EXAMINATION: Chest radiograph, portable AP view. DATE: 06/09/2021 7:52 AM INDICATION: 50-year-old male, shortness of breath. Pneumonia. COMPARISON: June 06, 2021. FINDINGS: There is multifocal bilateral lung consolidation with interval increase in opacification since the comparison study. Heart size and mediastinal contours are unchanged. There is no identified pneumothorax. There is no large pleural effusion. IMPRESSION: 1. Multifocal bilateral lung consolidation with interval increase in consolidation since June 06, 2021. Dictated by: Dictated on workstation # [id number]
[2021-06-09] MEDS ORDERED: DEXA6TAB6 PO (13:08)
[2021-06-09] MEDS ORDERED: MIRT-47 PO (13:08)
[2021-06-09] MEDS ORDERED: AMLO-375 PO (13:08)
[2021-06-09] MEDS ORDERED: MELA3TAB39 PO (13:08)
--- NOTE | 2021-06-09 13:09 | Discharge Summary ---
Discharge Summary Hospital Course Was the Problem List Reviewed?: Yes Problems/Dx: (1) COVID-19 virus infection Status: Acute (2) Hypoxia Status: Acute (3) Pneumonia due to COVID-19 virus Status: Acute (4) HTN (hypertension) Status: Chronic Qualifiers: Qualified Codes: I10 - Essential (primary) hypertension (5) Acute respiratory failure with hypoxia Status: Acute Hospital Course Date of Admission: Jun 06, 2021 at 06:15 Admission Diagnosis : Family Physician/Provider: Dimas Garcia MD Date of Discharge: 06/09/21 Discharge Diagnosis: Acute hypoxic respiratory failure due to COVID-19 pneumonia Hospital Course: Patient has short hospital course he was placed on IV steroids supportive care with high oxygen delivery and closely monitored. His labs remained stable and his chest x-ray was stable he was able to be weaned off oxygen and was deemed stable for discharge. Labs and Pending Lab Test: Laboratory Tests 06/09/21 07:01: White Blood Count 9.9, Red Blood Count 4.76, Hemoglobin 14.8, Hematocrit 46, Mean Corpuscular Volume 96, Mean Corpuscular Hemoglobin 31, Mean Corpuscular Hemoglobin Concent 32, Red Cell Distribution Width 13.6, Platelet Count 341, Mean Platelet Volume 9.3, Immature Granulocyte % (Auto) 1, Neutrophils (%) (Auto) 76H, Lymphocytes (%) (Auto) 14, Monocytes (%) (Auto) 9, Eosinophils (%) (Auto) 1, Basophils (%) (Auto) 0, Neutrophils # (Auto) 7.5, Lymphocytes # (Auto) 1.4, Monocytes # (Auto) 0.9, Eosinophils # (Auto) 0.1, Basophils # (Auto) 0.0, Immature Granulocyte # (Auto) 0.1, Sodium Level 139, Potassium Level 4.0, Chloride Level 105, Carbon Dioxide Level 24, Anion Gap 10, Blood Urea Nitrogen 15, Creatinine 0.74, Estimat Glomerular Filtration Rate 111, BUN/Creatinine Ratio 20, Glucose Level 107H, Calcium Level 9.0, Corrected Calcium 9.6, Total Bilirubin 0.5, Aspartate Amino Transf (AST/SGOT) 28, Alanine Aminotransferase (ALT/SGPT) 57H, Alkaline Phosphatase 76, Total Protein 6.3L, Albumin 3.3 Home Meds Active Decadron (Dexamethasone) 6 Mg Tablet 6 Mg PO DAILY Melatonin 3 Mg Tablet 6 Mg PO HS PRN Mirtazapine 15 Mg Tab.rapdis 15 Mg PO HS Amlodipine-Valsartan 5-160 mg (Amlodipine/Valsartan) 1 Each Tablet 1 Tab PO DAILY 7 Days Hold until see Dr Garcia due to low BP currently Reported Ibuprofen 200 Mg Capsule 400-600 Mg PO Q8H PRN Ondansetron Odt (Ondansetron) 4 Mg Tab.rapdis 4 Mg PO Q6H PRN Prednisone 20 Mg Tab 20 Mg PO BID FILLED 06-03-2021 #10/5 DAY SUPPLY Azithromycin 500 Mg Tablet 500 Mg PO DAILY FILLED 06-03-2021 #4/4 DAY SUPPLY Ezetimibe 10 Mg Tablet 10 Mg PO DAILY Assessment/Pt Instructions [facility] in 1 week Discharge Planning: <30 minutes discharge planning Discharge Instructions Discharge Diet: No Restrictions Discharge Physical Examination Vital Signs Vital Signs Date Time Temp Pulse Resp B/P (MAP) Pulse Ox O2 Delivery O2 Flow Rate FiO2 06/09/21 09:49 88 93 1.00 90 06/09/21 08:04 Room Air 06/09/21 08:00 36.2 20 107/78 (88) General Appearance: No Apparent Distress, WD/WN, Chronically ill Respiratory: Lungs Clear, Normal Breath Sounds Cardiovascular: Regular Rate, Rhythm Neurologic/Psychiatric: Alert, Oriented x3, No Motor/Sensory Deficits, Normal Mood/Affect Allergies: Coded Allergies: No Known Drug Allergies (Unverified , 12/09/19) Discharge Summary Date of Admission Jun 06, 2021 at 06:15 Date of Discharge Discharge Date: Jun 09, 2021 Discharge Diagnosis Assessment: COVID-19 pneumonia Hypoxic respiratory failure Plan: Treat insomnia Discharge plan ZAN MORGAN DO Jun 09, 2021 13:09
== END 2021-06-09 14:10 | disposition home or self-care (01) | DRG 177 ==
LOC: EDUNIT# 03:32 → ER FS 03:35 → 4TH 06:15
PROVIDERS: ADMIT Family Medicine; ATTEND Internal Medicine
DX: U07.1 COVID-19 (principal); J96.01 Acute respiratory failure with hypoxia; I10 Essential (primary) hypertension; E78.5 Hyperlipidemia, unspecified; E78.00 Pure hypercholesterolemia, unspecified; G47.00 Insomnia, unspecified; Z79.899 Other long term (current) drug therapy; Z87.891 Personal history of nicotine dependence; Z73.0 Burn-out
CPT/HCPCS: 36415; 71045; 80048; 80053; 84145; 85007; 85025; 85027; 85379; 86141; 94640; 94760; 94761

== ENCOUNTER 2022-04-24 09:24 | Emergency (ER) | payer BC, OTHER ==
[~2022-04-24] VITALS: Ht 165 cm; Wt 75.0 kg
[~2022-04-24 09:24] MED LIST changes: +DEXA6TAB6 PO; +IBUP-2185 PO; -LISI1TAB29 PO; +LISI1TAB44 PO; +MELA3TAB39 PO; +MIRT-47 PO
[2022-04-24] MEDS ORDERED: FLUORESCEIN (FLUOR-I-STRIPS) 1 MG STRP ONE (09:36)
[2022-04-24] MEDS ORDERED: TETRACAINE 0.5% OPHTH SOLN 4 ML BTL (SINGLE DOSE ONLY) ONE (09:37)
[2022-04-24 09:39] VITALS: BP 125/94
[2022-04-24] MEDS ORDERED: FLUORESCEIN (FLUOR-I-STRIPS) 1 MG STRP OU ONE (09:45)
[2022-04-24] MEDS ORDERED: TETRACAINE 0.5% OPHTH SOLN 4 ML BTL (SINGLE DOSE ONLY) OU ONE (09:45)
--- NOTE | 2022-04-24 10:09 | ED EENT ---
History of Present Illness General Chief Complaint: Eye Problems Stated Complaint: RT EYE INJ Nursing Triage Note: Patient has gotten hit in his right eye with a peice from a head bone grinder on Thursday. Source: patient History of Present Illness Date Seen by Provider: Apr 24, 2022 Time Seen by Provider: 09:32 Initial Comments 51-year-old male presenting with complaints of pain and irritation to his right eye. 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 He denies having any change in his vision. He continues to feel like there is something irritating his eye or stuck in his eye in the medial superior aspect. He states this happened on Thursday but he has continued to work since then. Since it was still bothering him today he came to the emergency department as a work comp patient. He denies any other injuries. Location Injury Occurred: Work Timing/Duration: abrupt Severity: moderate Location: eye (R) Prearrival Treatment: flushing eyes Associated Symptoms: No change in hearing, No cough, No drooling, No ear drai nage, No facial pain/swelling, No fever, No malaise, No nasal congestion/drainage, No poor fluid intake, No poor solids intake, No sinus infection, No sore throat, No tooth pain, No voice change Allergies and Home Medications Allergies Coded Allergies: No Known Drug Allergies (Unverified , 12/09/19) Patient Home Medication List Home Medication List Reviewed: Yes Amlodipine/Valsartan (Amlodipine-Valsartan 5-160 mg) 1 Each Tablet, 1 TAB PO DAILY Prescribed by: ZAN MORGAN on 06/09/21 1308 Dexamethasone (Decadron) 6 Mg Tablet, 6 MG PO DAILY Prescribed by: ZAN MORGAN on 06/09/21 1308 Ezetimibe (Ezetimibe) 10 Mg Tablet, 10 MG PO DAILY, (Reported) Entered as Reported by: DUY ASTORGA on 06/02/21 1735 Ibuprofen (Ibuprofen) 200 Mg Capsule, 400-600 MG PO Q8H PRN for PAIN-MILD (1-4), (Reported) Entered as Reported by: CARI COSME on 06/06/21 1031 Melatonin (Melatonin) 3 Mg Tablet, 6 MG PO HS PRN for INSOMNIA Prescribed by: ZAN MORGAN on 06/09/21 1308 Mirtazapine (Mirtazapine) 15 Mg Tab.rapdis, 15 MG PO HS Prescribed by: ZAN MORGAN on 06/09/21 1308 Ondansetron (Ondansetron Odt) 4 Mg Tab.rapdis, 4 MG PO Q6H PRN for NAUSEA/VOMITING-1ST LINE, (Reported) Entered as Reported by: CARI COSME on 06/06/21 1031 Polymyxin B Sulf/Trimethoprim (Polymyxin B-Tmp Eye Drops) 10,000 Unit-1 Mg/Ml Drops, 1 DROP OD Q4H Prescribed by: LESLIE MOSS on 04/24/22 1012 Review of Systems Review of Systems Constitutional: no symptoms reported Eyes: See HPI; Denies Blurred Vision, Denies Decreased Acuity; Foreign Body Sensation, Inflammation, Pain, Photophobia, Previous Injury, Glasses Ears: No Symptoms Reported Nose: no symptoms reported Mouth: no symptoms reported Throat: no symptoms reported Respiratory: no symptoms reported Cardiovascular: no symptoms reported Gastrointestinal: no symptoms reported Musculoskeletal: no symptoms reported Skin: no symptoms reported Past Ujnprrj-Thmfcv-Pyihbm Hx Patient Social History Tobacco Use?: No Substance use?: No Alcohol Use?: Yes Alcohol Frequency: Once in a while Seasonal Allergies Seasonal Allergies: Yes Past Medical History Surgery/Hospitalization HX: HTN, Hyperlipidemia Surgeries: No Respiratory: No Cardiac: Yes High Cholesterol, Hypertension Neurological: No Genitourinary: No Gastrointestinal: Yes Polyps Musculoskeletal: No Endocrine: No HEENT: No Cancer: No Psychosocial: No Integumentary: No Blood Disorders: No Family Medical History Colon cancer Visual Acuity : Eye Location: Bilaterally Vision Acuity Degree: 20/20 (OS 20/30 and OD 20/25, without correction) Physical Exam Vital Signs Vital Signs - First Documented 04/24/22 09:39 Temp 36.7 Pulse 93 Resp 16 B/P (MAP) 125/94 (104) Pulse Ox 96 O2 Delivery Room Air Height, Weight, BMI Height: '" Weight: lbs. oz. kg; 27.00 BMI Method: General Appearance: WD/WN, no apparent distress Eyes: bilateral eye PERRL, bilateral eye EOMI, bilateral eye conjunctival inflammation (inflamed conjunctiva, right more than left. No foreign body or abrasion seen with fluorescein dye and black light) Neurologic/Psychiatric: alert, oriented x 3 Skin: normal color, warm/dry Procedures/Interventions Eye : Location: right eye Anesthesia (gtts): Tetracaine Progress/Procedure Conclusion After obtaining verbal consent from the patient the right eye was anesthetized using tetracaine drops. Then fluorescein dye was administered and a black light used to look for pooling to indicate an abrasion or foreign body. No foreign body or pooling were seen. A moistened cotton swab was used to sweep the inside of the upper eyelid since that was where he felt something was stuck. There was still no foreign body seen or removed with this method. Counseled on follow-up and return precautions. Advised to use antibiotic drops for irritation and see eye doctor if not doing better tomorrow or sooner if getting worse Progress/Results/Core Measures Results/Orders My Orders Orders - LESLIE MOSS MD Tetracaine 0.5% Ophth Fadia Sdv (Tetracai (04/24/22 09:45) Fluorescein Strips ([id number]-O-Rfsqrr) (04/24/22 09:45) Nursing Communication (Order) (04/24/22 09:37) Fluorescein Strips ([id number]-H-[id number]) (04/24/22 09:36) Tetracaine 0.5% Ophth Fadia Sdv (Tetracai (04/24/22 09:37) Medications Given in ED Current Medications Medications Dose Ordered Sig/John Route Start Time Stop Time Status Last Admin Dose Admin Fluorescein Sodium 1 mg ONCE ONCE OU 04/24/22 09:45 04/24/22 09:46 DC 04/24/22 09:59 1 MG Tetracaine HCl 4 ml ONCE ONCE OU 04/24/22 09:45 04/24/22 09:46 DC 04/24/22 09:59 4 ML Vital Signs/I&O 04/24/22 09:39 Temp 36.7 Pulse 93 Resp 16 B/P (MAP) 125/94 (104) Pulse Ox 96 O2 Delivery Room Air Blood Pressure Mean: 104 Progress Progress Note : Progress Note No definite foreign body or abrasion seen with exam using fluorescein and black light. Counseled on follow-up and return precautions. Will use antibiotic eyedrops for possible irritation to the eye and superficial infection. Counseled on seeing an eye doctor if he is not improved by tomorrow or if he wo rsens Departure Impression Primary Impression: Irritation of right eye Disposition: 01 HOME, SELF-CARE Condition: Stable Departure-Patient Inst. Decision time for Depature: 10:12 Referrals: HELADIO EPSTEIN MD (PCP) Primary Care Physician Patient Instructions: Eye Contusion (DC), How to Use Eye Drops and Eye Ointment ED Add. Discharge Instructions: Use the antibiotic eyedrops for the next 5 days. It would be 1 drop to the right eye every 4 hours while awake. If you are not seeing significant improvement in your the by tomorrow you should see he either quality engineering manager or street light repairer for a more in-depth exam. May apply ice pack or cold pack over the eye when you are resting and not wo rking. This could help with pain and inflammation. You may also use ibuprofen if needed for pain and inflammation. Wear dark sunglasses when out in bright sunlight. All discharge instructions reviewed with patient and/or family. Voiced understanding. Scripts Polymyxin B Sulf/Trimethoprim (Polymyxin B-Tmp Eye Drops) 10,000 Unit-1 Mg/Ml Drops 1 DROP OD Q4H for eye irritation for 5 Days, #10 ML 0 Refills Prov: LESLIE MOSS MD 04/24/22 LESLIE MOSS MD Apr 24, 2022 10:09
[2022-04-24] MEDS ORDERED: PLTR10OP OD (10:12)
== END 2022-04-24 10:18 | disposition home or self-care (01) ==
LOC: EDUNIT# 09:24 → ER FS 09:25
DX: H57.89 Other specified disorders of eye and adnexa (principal); Z28.310 Unvaccinated for COVID-19
CPT/HCPCS: 99282

== ENCOUNTER 2022-09-08 05:36 | Emergency (ER) | payer SELFPAY ==
[~2022-09-08 05:36] MED LIST changes: +POLY10DR31 OD
--- NOTE | 2022-09-08 06:03 | ED Cough/URI ---
General Chief Complaint: Respiratory Problems Stated Complaint: SOA - COUGH - CONGESTION Nursing Triage Note: PT ARRIVAL TO ER VIA PRIVATE VEHICLE FROM HOME WITH COMPLAINTS OF SOA, AND COUGH X2 WEEKS. PATIENT DENIES CHEST PAIN, BODY ACHES, FEVER, OR OTHER COMPLAINTS. PATIENTS SIGNIFICANT OTHER DOES STATE THAT PATIENT DOES HAVE CHEST PAIN FROM TIME TO TIME, BUT NOT RECENTLY. PATIENT DENIES BEING AROUND ANYONE WHO IS SICK. PATIENT HAS HISTORY OF HTN. PATIENT DENIES BEING FLU OR COVID VACCINATED. Source: patient Exam Limitations: no limitations History of Present Illness Date Seen by Provider: Sep 08, 2022 Time Seen by Provider: 05:49 Initial Comments 51yoM with PMH HTN and prior smoker coming in due to 2 weeks of worsening productive cough and SOB. Patient denies any fever, n/v/d, abd pain, chest pain, weakness, numbness, headache, or any other concerns. Has only taken blood pressure meds today. Feels similar to when he had COVID last year. Otherwise denying any other acute complaints. Allergies and Home Medications Allergies Coded Allergies: No Known Drug Allergies (Unverified , 12/09/19) Patient Home Medication List Home Medication List Reviewed: Yes Amlodipine/Valsartan (Amlodipine-Valsartan 5-160 mg) 1 Each Tablet, 1 TAB PO DAILY Prescribed by: ZAN MORGAN on 06/09/21 1308 Dexamethasone (Decadron) 6 Mg Tablet, 6 MG PO DAILY Prescribed by: ZAN MORGAN on 06/09/21 1308 Ezetimibe (Ezetimibe) 10 Mg Tablet, 10 MG PO DAILY, (Reported) Entered as Reported by: DUY ASTORGA on 06/02/21 1735 Ibuprofen (Ibuprofen) 200 Mg Capsule, 400-600 MG PO Q8H PRN for PAIN-MILD (1-4), (Reported) Entered as Reported by: CARI COSME on 06/06/21 1031 Melatonin (Melatonin) 3 Mg Tablet, 6 MG PO HS PRN for INSOMNIA Prescribed by: ZAN MORGAN on 06/09/21 1308 Mirtazapine (Mirtazapine) 15 Mg Tab.rapdis, 15 MG PO HS Prescribed by: ZAN MORGAN on 06/09/21 1308 Ondansetron (Ondansetron Odt) 4 Mg Tab.rapdis, 4 MG PO Q6H PRN for NAUSEA/VOMITING-1ST LINE, (Reported) Entered as Reported by: CARI COSME on 06/06/21 1031 Polymyxin B Sulf/Trimethoprim (Polymyxin B-Tmp Eye Drops) 10,000 Unit-1 Mg/Ml Drops, 1 DROP OD Q4H Prescribed by: LESLIE MOSS on 04/24/22 1012 Review of Systems Review of Systems Constitutional: No fever EENTM: nose congestion Respiratory: cough, short of breath Cardiovascular: No chest pain Gastrointestinal: No abdominal pain Genitourinary: no symptoms reported Musculoskeletal: no symptoms reported Skin: no symptoms reported Psychiatric/Neurological: No Symptoms Reported Hematologic/Lymphatic: No Symptoms Reported Immunological/Allergic: no symptoms reported All Other Systems Reviewed Negative Unless Noted: Yes Past Fajsemk-Vcxynw-Lknfur Hx Patient Social History Tobacco Use?: No Use of E-Cig and/or Vaping dev: No Substance use?: No Alcohol Use?: No Pt feels they are or have been: No Immunizations Up To Date Influenza Vaccine Up-to-Date: No; Not Current Seasonal Allergies Seasonal Allergies: Yes Past Medical History Surgery/Hospitalization HX: HTN, Hyperlipidemia Surgeries: No Respiratory: No Cardiac: Yes High Cholesterol, Hypertension Neurological: No Genitourinary: No Gastrointestinal: Yes Polyps Musculoskeletal: No Endocrine: No HEENT: No Cancer: No Psychosocial: No Integumentary: No Blood Disorders: No Family Medical History Colon cancer Physical Exam Vital Signs - First Documented 09/08/22 05:43 Temp 36.8 Pulse 79 Resp 20 B/P (MAP) 141/98 (112) Pulse Ox 96 O2 Delivery Room Air Capillary Refill : Less Than 3 Seconds Height: '" Weight: lbs. oz. kg; 27.00 BMI Method: General Appearance: WD/WN, no apparent distress Eyes: Bilateral Eye Normal Inspection HEENT: PERRL/EOMI, normal ENT inspection, pharynx normal Neck: non-tender, full range of motion, supple, normal inspection Respiratory: chest non-tender, no respiratory distress, no accessory muscle use, crackles Cardiovascular: regular rate, rhythm, no edema, no murmur Gastrointestinal: normal bowel sounds, non tender, soft; No distended, No guarding, No rebound Extremities: normal range of motion, non-tender, normal inspection, no pedal edema, no calf tenderness, normal capillary refill Neurologic/Psychiatric: no motor/sensory deficits, alert, normal mood/affect Skin: normal color, warm/dry Lymphatic: no adenopathy Progress/Results/Core Measures Suspected Sepsis SIRS Temperature: Pulse: 79 Respiratory Rate: 20 Blood Pressure 141 /98 Mean: 112 Results/Orders Lab Results Laboratory Tests Test 09/08/22 05:45 Range/Units My Orders Orders - WANDA ÁLVAREZ MD Chest 1 View, Ap/Pa Only (09/08/22 05:57) Vital Signs/I&O 09/08/22 09/08/22 05:43 05:43 Temp 36.8 Pulse 79 Resp 20 B/P (MAP) 141/98 (112) Pulse Ox 96 O2 Delivery Room Air Room Air Capillary Refill : Less Than 3 Seconds Blood Pressure Mean: 112 Progress Note : Progress Note 51yoM with above history coming in due to productive cough and SOB. ABCs intact and VSS on presentation. COVID and flu test ordered. CXR also ordered given the crackles in his lower lung lal. No history of CHF or other signs of CHF on exam. Chest x-ray monitor potation with no obvious infiltrate, no pneumothorax, hemothorax, normal cardiac silhouette. Appears slightly improved from prior chest x-ray that was obtained here many months ago. COVID and flu test pending at this time. Given his history of COPD with increasing productive sputum, will treat this as a COPD exacerbation Diagnostic Imaging Diagonstic Imaging: Xray Plain Films/CT/US/NM/MRI: chest Departure Impression Primary Impression: COPD exacerbation Disposition: 01 HOME, SELF-CARE Condition: Stable Departure-Patient Inst. Decision time for Depature: 06:35 Referrals: HELADIO EPSTEIN MD (PCP/Family) Primary Care Physician Patient Instructions: COPD Exacerbation, Adult ED Add. Discharge Instructions: Your x-ray did not show any obvious pneumonia, but given your history of mild COPD, I am concerned that this virus is causing an exacerbation. In this case, antibiotics typically can be helpful as well as steroids. These will be sent to your pharmacy. Scripts Methylprednisolone (Methylprednisolone Dose Pack) 4 Mg Tab.ds.pk 4 MG PO UD for 6 Days, #21 PKG PER DOSE PACK INSTRUCTIONS Prov: WANDA ÁLVAREZ MD 09/08/22 Doxycycline Hyclate (Doxycycline Hyclate) 100 Mg Tablet 100 MG PO BID for 7 Days, #14 TAB 0 Refills Prov: WANDA ÁLVAREZ MD 09/08/22 Work/School Note: Work Release Form Date Seen in the Emergency Department: Sep 08, 2022 Return to Work: Sep 09, 2022 Restrictions: No Restrictions WANDA ÁLVAREZ MD Sep 08, 2022 06:03
[2022-09-08] MEDS ORDERED: DOXY100T2 PO (06:25)
[2022-09-08] MEDS ORDERED: METH4TAB10 PO (06:25)
[2022-09-08 06:27] VITALS: BP 141/98
--- NOTE | 2022-09-08 06:28 | Diagnostic Imaging Report ---
INDICATION: SOB, productive cough. TECHNIQUE: Single view chest 6:12 AM. CORRELATION STUDY: 06/09/2021 FINDINGS: The heart size, mediastinal configuration and pulmonary vascularity are within normal limits. Question esophageal hernia. The lungs are clear with no consolidating infiltrate. There is no significant effusion or pneumothorax. IMPRESSION: 1. Negative appearing single view chest. Dictated by: Dictated on workstation # [id number]
== END 2022-09-08 06:35 | disposition home or self-care (01) ==
LOC: EDUNIT# 05:36 → ER 05:37
DX: J44.1 Chronic obstructive pulmonary disease with (acute) exacerbation (principal); Z87.891 Personal history of nicotine dependence; Z86.16 Personal history of COVID-19; Z28.310 Unvaccinated for COVID-19
CPT/HCPCS: 71045; 87636